=== PATIENT | female | born 1955 | race Caucasian/White ===

== ENCOUNTER 2018-04-18 13:06 | Emergency (ER) | payer OTHER ==
[2018-04-18 13:19] VITALS: BP 222/101
--- NOTE | 2018-04-18 15:16 | ED Physician Documentation ---
History of Present Illness - Stated complaint Stated Complaint: LEFT FOOT PX - Chief complaint Chief Complaint: General - History obtained from History obtained from: Patient - History of Present Illness Timing: How many weeks ago (several) Pain level max: 6 Pain level now: 4 - Additonal information Additional information: Patient is a 63-year-old female presents to the emergency department with pain to the lateral aspect of the left foot for the past several weeks. Better with rest and worse with movement. Worsens throughout the day. Has not been taken anything for this. Has never had similar symptoms. Review of Systems Skin: denies: Rash Neurologic: denies: Focal weakness, Numbness PD PAST MEDICAL HISTORY - Past Medical History Past Medical History: Yes Cardiovascular: Hypertension - Past Surgical History Past Surgical History: Yes General: Cholecystectomy - Present Medications Home Medications: Ambulatory Orders Medication Instructions Recorded Confirmed Meloxicam [Mobic] 7.5 mg PO BID PRN #20 tablet 04/18/18 - Allergies Allergies/Adverse Reactions: Allergies Allergy/AdvReac Type Severity Reaction Status Date / Time No Known Drug Allergies Allergy Verified 04/18/18 13:19 - Social History Does the pt smoke?: No Smoking Status: Never smoker Does the pt drink ETOH?: No Does the pt have substance abuse?: No - Immunizations Immunizations are current?: Yes - POLST Patient has POLST: No PD ED PE NORMAL - Vitals Vital signs reviewed: Yes - General General: Alert and oriented X 3, No acute distress - Derm Derm: Warm and dry - Extremities Extremities: Other (L foot - Mild tenderness over the base of the fifth metatarsal. Otherwise normal examination of the left foot and ankle. No deformity. No numbness or tingling. Neurovascularly intact. No plantar tenderness. No tenderness over the heel.) - Neuro Neuro: Alert and oriented X 3 Results - Vitals Vitals: Oxygen O2 Source Room air - Rads (name of study) L foot xray Radiology: Prelim report reviewed, EMP read contemporaneously, See rad report ( normal) PD MEDICAL DECISION MAKING - ED course Complexity details: reviewed results, re-evaluated patient, considered differential, d/w patient ED course: Patient is a 63-year-old female who presents to the emergency department with what appears to be a left foot strain. We will trial her in a postoperative shoe and on nonsteroidal anti-inflammatory medications and see how she progresses. We will have her follow-up with her doctor for further care. Normal x-ray. Patient counseled regarding signs and symptoms for which I believe and urgent re-evaluation would be necessary. Patient with good understanding of and agreement to plan and is comfortable going home at this time This document was made in part using voice recognition software. While efforts are made to proofread this document, sound alike and grammatical errors may occur. She also states she has a history of hypertension and will follow up with her doctor regarding her elevated blood pressure today - Sepsis Event Vital Signs: Oxygen O2 Source Room air Departure - Departure Disposition: Home, Self Care Clinical Impression: Strain of foot, left Qualifiers: Encounter type: initial encounter Qualified Code(s): S96.912A - Strain of unspecified muscle and tendon at ankle and foot level, left foot, initial encounter Condition: Good Instructions: ED Sprain Foot Follow-Up: Chance Burden MD [Primary Care Provider] - Within 1 week Prescriptions: Meloxicam [Mobic] 7.5 mg PO BID PRN #20 tablet PRN Reason: Pain Comments: Wear the postoperative shoe to help support the foot. Return if you worsen. Follow-up with your doctor for further care. Your x-rays are normal today Discharge Date/Time: 04/18/18 15:45
--- NOTE | 2018-04-18 15:26 | XRAY Report ---
Procedure Date: 04/18/2018 Accession Number: [id number] / [id number] Procedure: XR - Foot 3 View LT CPT Code: FULL RESULT: EXAM: LEFT FOOT RADIOGRAPHY EXAM DATE: 04/18/2018 02:55 PM. CLINICAL HISTORY: Lateral foot pain. COMPARISON: None. TECHNIQUE: 3 views. FINDINGS: Bones: No acute fractures or suspicious bone lesions. Joints: No subluxations. Soft Tissues: Unremarkable. IMPRESSION: No acute radiographic abnormalities. [facility]
== END 2018-04-18 15:45 | disposition home or self-care (01) ==
LOC: ED 13:06
DX: S96.912A Strain of unspecified muscle and tendon at ankle and foot level, left foot, initial encounter (principal); X58.XXXA Exposure to other specified factors, initial encounter; I10 Essential (primary) hypertension
CPT/HCPCS: 99283